=== PATIENT | male | born 1995 | race Caucasian/White ===

== ENCOUNTER 2017-12-30 14:08 | Emergency (ER) | payer BC ==
[2017-12-30 14:20] VITALS: BP 125/97; Ht 182.9 cm
== END 2017-12-30 17:04 | disposition home or self-care (01) ==
LOC: ED 14:08
DX: S01.01XA Laceration without foreign body of scalp, initial encounter (principal); X58.XXXA Exposure to other specified factors, initial encounter; Y93.I9 Activity, other involving external motion; Y92.69 Other specified industrial and construction area as the place of occurrence of the external cause; Y99.8 Other external cause status